=== PATIENT | female | born 1975 | race Two or more races ===

== ENCOUNTER → 2017-09-29 | Outpatient (CLI) | payer OTHER ==
[~2017-09-29] MED LIST: ZYRTEC10 MG PO
== END | disposition home or self-care (01) ==
LOC: RAD 16:04
DX: R06.00 Dyspnea, unspecified (principal); R05 Cough

== ENCOUNTER 2017-10-29 22:12 | Emergency (ER) | payer OTHER ==
[~2017-10-29] VITALS: Ht 157.5 cm; Wt 72.6 kg
[2017-10-30] MEDS ORDERED: CLINDAMYCIN HC300 MG PO (00:42)
[2017-10-30] MEDS ORDERED: PERCOCET 5-3251 EACH PO (00:42)
[2017-10-30] MEDS ORDERED: TRANZAREL120 ML PO (00:42)
[2017-10-30] MEDS ORDERED: INTESTINEX680 M1 PO (00:42)
[2017-10-30] MEDS ORDERED: PEPCID AC20 MG PO (00:51)
[2017-10-30] MEDS ORDERED: ZOFRAN ODT4 MG SL (00:51)
== END 2017-10-30 00:54 | disposition home or self-care (01) ==
LOC: ER 22:12
DX: K04.7 Periapical abscess without sinus (principal); K08.89 Other specified disorders of teeth and supporting structures

== ENCOUNTER 2017-11-23 09:31 | Outpatient (CLI) | payer OTHER ==
[~2017-11-23 09:31] MED LIST changes: +CLINDAMYCIN HC300 MG PO; +INTESTINEX680 M1 PO; +PEPCID AC20 MG PO; +PERCOCET 5-3251 EACH PO; +TRANZAREL120 ML PO; +ZOFRAN ODT4 MG SL
== END 2017-11-23 16:50 | disposition home or self-care (01) ==
LOC: NUCLEAR 09:31
DX: I27.29 Other secondary pulmonary hypertension (principal)

== ENCOUNTER 2018-07-19 07:57 | Outpatient (CLI) | payer OTHER | END 2018-07-19 08:01 | disposition home or self-care (01) | LOC: MAMO-SONO 07:57 | DX: N60.01 Solitary cyst of right breast (principal); N60.02 Solitary cyst of left breast; Z12.31 Encounter for screening mammogram for malignant neoplasm of breast ==

== ENCOUNTER 2018-11-30 08:06 | Outpatient (CLI) | payer OTHER | END 2018-11-30 08:13 | disposition home or self-care (01) | LOC: SONOGRAMA 08:06 | DX: E04.1 Nontoxic single thyroid nodule (principal) ==

== ENCOUNTER 2019-09-19 07:56 | Outpatient (CLI) | payer OTHER | END 2019-09-19 08:06 | disposition home or self-care (01) | LOC: MAMO-SONO 07:56 | DX: Z12.31 Encounter for screening mammogram for malignant neoplasm of breast (principal); Z12.39 Encounter for other screening for malignant neoplasm of breast; R10.2 Pelvic and perineal pain ==

== ENCOUNTER → 2020-08-22 | Outpatient (CLI) | payer OTHER | END | disposition home or self-care (01) | LOC: MAMO-SONO 07-23 14:15 → SONOGRAMA 14:05 → MAMO-SONO 14:15 | DX: E04.2 Nontoxic multinodular goiter (principal) ==

== ENCOUNTER 2020-09-12 14:48 | Outpatient (CLI) | payer OTHER | END 2020-09-12 14:51 | disposition home or self-care (01) | LOC: NUCLEAR 14:48 | PROVIDERS: ATTEND Internal Medicine | DX: M81.0 Age-related osteoporosis without current pathological fracture (principal) ==

== ENCOUNTER 2020-09-24 11:55 | Outpatient (CLI) | payer OTHER | END 2020-09-24 12:02 | disposition home or self-care (01) | LOC: RAD 11:55 | PROVIDERS: ATTEND Specialist | DX: G89.11 Acute pain due to trauma (principal) ==

== ENCOUNTER → 2020-12-24 | Outpatient (CLI) | payer OTHER | END | disposition home or self-care (01) | LOC: MAMO-SONO 08:06 | PROVIDERS: ATTEND Obstetrics & Gynecology | DX: R92.1 Mammographic calcification found on diagnostic imaging of breast (principal); N64.4 Mastodynia; Z12.31 Encounter for screening mammogram for malignant neoplasm of breast ==

== ENCOUNTER 2021-04-14 12:56 | Outpatient (CLI) | payer OTHER | END 2021-04-14 12:58 | disposition home or self-care (01) | LOC: RAD 12:56 | PROVIDERS: ATTEND Internal Medicine | DX: M54.59 Other low back pain (principal) ==

== ENCOUNTER 2021-12-29 08:09 | Outpatient (CLI) | payer OTHER | END 2021-12-29 08:20 | disposition home or self-care (01) | LOC: RAD 08:09 | PROVIDERS: ATTEND Internal Medicine | DX: I70.0 Atherosclerosis of aorta (principal); Z12.31 Encounter for screening mammogram for malignant neoplasm of breast; N60.99 Unspecified benign mammary dysplasia of unspecified breast ==

== ENCOUNTER 2022-06-03 08:24 | Outpatient (CLI) | payer OTHER | END 2022-06-03 08:37 | disposition home or self-care (01) | LOC: RAD 08:24 | PROVIDERS: ATTEND Internal Medicine | DX: M19.041 Primary osteoarthritis, right hand (principal); M19.042 Primary osteoarthritis, left hand ==

== ENCOUNTER → 2022-06-15 | Outpatient (CLI) | payer OTHER | END | disposition home or self-care (01) | LOC: TOM 12:18 | DX: J84.10 Pulmonary fibrosis, unspecified (principal); M34.9 Systemic sclerosis, unspecified; I73.00 Raynaud's syndrome without gangrene ==

== ENCOUNTER 2022-09-15 13:06 | Outpatient (CLI) | payer OTHER | END 2022-09-15 13:11 | disposition home or self-care (01) | LOC: NUCLEAR 13:06 | PROVIDERS: ATTEND Internal Medicine | DX: M81.0 Age-related osteoporosis without current pathological fracture (principal) ==

== ENCOUNTER 2022-09-23 07:21 | Outpatient (CLI) | payer OTHER | END 2022-09-23 07:22 | disposition home or self-care (01) | LOC: NUCLEAR 07:21 | PROVIDERS: ATTEND Internal Medicine Gastroenterology | DX: K31.84 Gastroparesis (principal) | CPT/HCPCS: 78264; A9541 ==

== ENCOUNTER 2023-03-25 07:14 | Outpatient (CLI) | payer OTHER | END 2023-03-25 10:33 | disposition home or self-care (01) | LOC: SONOGRAMA 07:14 | DX: R10.2 Pelvic and perineal pain (principal) ==

== ENCOUNTER 2023-07-14 07:37 | Outpatient (CLI) | payer OTHER | END 2023-07-14 07:41 | disposition home or self-care (01) | LOC: SONOGRAMA 07:37 | DX: M75.81 Other shoulder lesions, right shoulder (principal); M54.2 Cervicalgia ==

== ENCOUNTER 2023-11-18 13:07 | Outpatient (CLI) | payer OTHER ==
[~2023-11-18 13:07] MED LIST changes: +ALLEGRA ALLERG180 MG; +LEVOTHYROXINE25 MCG PO; +MAXIMUM ENERGY1 EACH PO; +NASACORT16.9 ML; +PROZAC40 MG; +SINGULAIR10 MG PO
== END 2023-11-18 13:09 | disposition home or self-care (01) ==
LOC: RAD 13:07
PROVIDERS: ATTEND Orthopaedic Surgery
DX: M48.061 Spinal stenosis, lumbar region without neurogenic claudication (principal)

== ENCOUNTER 2023-12-13 20:58 | Emergency (ER) | payer OTHER ==
[~2023-12-13] VITALS: Ht 154.9 cm; Wt 63.5 kg
[2023-12-13] MEDS ORDERED: SYMBICORT 16010.2 GM (21:44)
[2023-12-13] MEDS ORDERED: SPIRIVA RESPIMAT4 G1 (21:45)
[2023-12-13] MEDS ORDERED: HORIZANT600 MG (21:45)
[2023-12-13] MEDS ORDERED: ONDANSETRON HCL 2 MG/ML VIAL IV STA (21:57)
[2023-12-13] MEDS ORDERED: 0.9 % SODIUM CHLORIDE 1,000 ML IV STA (21:57)
[2023-12-13] MEDS ORDERED: FAMOTIDINE/PF 20 MG in 0.9 % SODIUM CHLORIDE 8 ML IV PUSH STA (21:58)
[2023-12-13] MEDS ORDERED: ONDANSETRON HCL 2 MG/ML VIAL ONE (22:01)
[2023-12-13] MEDS ORDERED: FAMOTIDINE/PF 20 MG/2 ML VIAL ONE (22:01)
[2023-12-13 23:18] LABS: HEMATOCRIT 31.3 % (36.0-45.00); HEMOGLOBIN 10.8 g/dL (12.0-15.00); MEAN CELL VOLUME 85.9 fL (80.00-100.00); MEAN CORPUSCULAR HEMOGLOBIN 29.5 pg (27.00-32.0); MEAN CORPUSCULAR HGB CONC 34.4 g/dl (32.0-36.0); PLATELET COUNT 225 K/uL (150-450); RED BLOOD COUNT 3.65 M/uL (4.00-6.00); RED CELL DISTRIBUTION WIDTH 14.9 % (11.5-14.5)
[2023-12-13 23:46] LABS: CALCIUM 9.2 mg/dL (8.5-10.1); CREATININE SERUM 0.47 mg/dL (0.55-1.02); GFR 142.66; POTASSIUM 3.44 mEq/L (3.5-5.1)
[2023-12-14] MEDS ORDERED: ACETAMINOPHEN 500 MG GEL..CAP PO STA (00:07)
[2023-12-14] MEDS ORDERED: ACETAMINOPHEN 500 MG GEL..CAP PO ONE (00:08)
[2023-12-14] MEDS ORDERED: PEPCID40 MG PO (03:09)
[2023-12-14] MEDS ORDERED: DOLOGESIC-DF 51 EACH PO (03:09)
== END 2023-12-14 03:11 ==
LOC: ER 21:00
PROVIDERS: Emergency Medicine
DX: K29.70 Gastritis, unspecified, without bleeding (principal); R11.10 Vomiting, unspecified; E03.8 Other specified hypothyroidism
CPT/HCPCS: 36415; 96365; 96366; 99282; J2405; J3490; J7030

== ENCOUNTER 2024-01-05 09:35 | Outpatient (CLI) | payer OTHER ==
[~2024-01-05 09:35] MED LIST changes: +DOLOGESIC-DF 51 EACH PO; +HORIZANT600 MG; +PEPCID40 MG PO; +SPIRIVA RESPIMAT4 G1; +SYMBICORT 16010.2 GM
== END 2024-01-05 09:50 | disposition home or self-care (01) ==
LOC: MAMO-SONO 09:35
PROVIDERS: ATTEND Obstetrics & Gynecology
DX: N60.11 Diffuse cystic mastopathy of right breast (principal); N60.12 Diffuse cystic mastopathy of left breast; Z12.31 Encounter for screening mammogram for malignant neoplasm of breast; R10.2 Pelvic and perineal pain

== ENCOUNTER 2024-04-05 09:03 | Outpatient (CLI) | payer OTHER | END 2024-04-05 09:20 | disposition home or self-care (01) | LOC: TOM 09:03 | PROVIDERS: ATTEND Internal Medicine | DX: J84.170 Interstitial lung disease with progressive fibrotic phenotype in diseases classified elsewhere (principal) ==

== ENCOUNTER 2024-04-24 14:18 | Outpatient (CLI) | payer OTHER | END 2024-04-24 14:24 | disposition home or self-care (01) | LOC: RAD 14:18 | DX: M25.562 Pain in left knee (principal) ==

== ENCOUNTER 2024-06-19 09:21 | Outpatient (CLI) | payer OTHER | END 2024-06-19 09:26 | disposition home or self-care (01) | LOC: SONOGRAMA 09:21 | PROVIDERS: ATTEND Internal Medicine | DX: E04.2 Nontoxic multinodular goiter (principal) ==

== ENCOUNTER 2024-10-01 10:00 | Outpatient (CLI) | payer OTHER | END 2024-10-01 10:01 | disposition home or self-care (01) | LOC: NUCLEAR 10:00 | PROVIDERS: ATTEND Internal Medicine | DX: M81.0 Age-related osteoporosis without current pathological fracture (principal) ==

== ENCOUNTER 2025-01-09 09:30 | Outpatient (CLI) | payer OTHER | END 2025-01-09 09:32 | disposition home or self-care (01) | LOC: MAMO-SONO 09:30 | PROVIDERS: ATTEND Internal Medicine | DX: N60.11 Diffuse cystic mastopathy of right breast (principal); N60.12 Diffuse cystic mastopathy of left breast; Z12.31 Encounter for screening mammogram for malignant neoplasm of breast ==

== ENCOUNTER 2025-03-21 08:47 | Outpatient (CLI) | payer OTHER | END 2025-03-21 08:48 | disposition home or self-care (01) | LOC: SONOGRAMA 08:47 | PROVIDERS: ATTEND Obstetrics & Gynecology | DX: R10.20 Pelvic and perineal pain unspecified side (principal) ==